=== PATIENT | female | born 1960 | race Caucasian/White ===

== ENCOUNTER 2022-04-14 11:56 | Outpatient (CLI) | payer OTHER, SELFPAY | END 2022-04-14 11:57 | disposition home or self-care (01) | PROVIDERS: Visit Provider Surgery | DX: Z12.11 Encounter for screening for malignant neoplasm of colon (principal); K63.5 Polyp of colon; K57.30 Diverticulosis of large intestine without perforation or abscess without bleeding; D64.9 Anemia, unspecified; Z80.0 Family history of malignant neoplasm of digestive organs; Z86.010 Personal history of colon polyps | CPT/HCPCS: 45385; 88305; 99153; J1200; J2250; J2405; J3010 ==

== ENCOUNTER 2023-01-16 10:12 | Outpatient (CLI) | payer OTHER, SELFPAY ==
--- NOTE | 2023-01-16 10:15 | CRLHL7_ITS ---
For Patients: As a result of the Century Cures Act, medical imaging exams and procedure reports are released immediately into your electronic medical record. You may view this report before your referring provider. If you have questions, please contact your health care provider. BILATERAL SCREENING MAMMOGRAM WITH COMPUTER-AIDED DETECTION TECHNIQUE: CC and MLO views were obtained. These mammographic images have been obtained using full-field digital technique. These mammographic images were interpreted with the benefit of computer-aided detection. COMPARISON FILM: 02/17/21, 01/21/20, 11/27/18. FINDINGS: The breasts are almost entirely fatty IMPRESSION: There is no radiographic evidence for malignancy. ASSESSMENT: BI-RADS Category 1: Negative RECOMMENDATION: Routine screening mammogram in 1 year. A lay language report of this examination will be provided to the patient. Sukhwinder Garcia M.D. Diagnostic Radiologist [email or web address] Transcribed: 12:33 p.lia cooley/Dictated by: Sukhwinder Garcia MD @ 01/16/2023 11:33:00 AM (Electronically Signed)
== END 2023-01-16 10:13 | disposition home or self-care (01) ==
LOC: MAMMO 10:14
PROVIDERS: Visit Provider Student in an Organized Health Care Education/Training Program
DX: Z12.31 Encounter for screening mammogram for malignant neoplasm of breast (principal)
CPT/HCPCS: 77067

== ENCOUNTER 2024-08-15 09:29 | Outpatient (CLI) | payer OTHER, SELFPAY ==
--- OUTSIDE RECORDS SUMMARY | 2005-08-11 19:00 | XMS_ITS | Continuity of Care Document ---
Author Organization [facility] Address [address] [address] [place] [address] Phone Care Team Providers Care Casing In Line Setter Name Role Phone Unavailable Unavailable Unavailable Advance Directives Directive Yes / No Effective Date File Name No Information Encounters Encounter Description Practice Location Reason(s) For Visit Diagnoses Date Provider Providers Copied on Encounter [facility], [address] [address], [place], [place], [id number], tel:[phone] [facility] No Information 6200 [id number] No Information Referring Provider: Bozena Wasserman MD, [address] [place], [address]. tel:[phone] Family History Family Member Type Diagnosis Age At Onset No Information Payers Payer name Insurance type Covered democrat ID Authoriza tion(s) No Information Social History Type Description Quantity Date Captured Comments Sex Female Smoking Status No Information Chief Complaint And Reason For Visit No Information Reason For Referral Reason For Referral No Information History Of Present Illness Encounter Date Complaint History Of Prese nt Illness No Information Functional Status Date Functional Assessmen t No Information Instructions Date Instruction Additional Infor mation No Information Assessments Type Assessment Date No Information Patient Care Teams Name Effective Dates (start - stop) Status Members No Information
--- NOTE | 2024-08-15 11:30 | P.ANES_ITS ---
Anesthesia Charges Start Date/Time Anesthesia Start Date: 08/15/24 Anesthesia Start Time: 11:00 Stop Date/Time Anesthesia Stop Date: 08/15/24 Anesthesia Stop Time: 11:30 Coding CPT Codes CPT Codes: YAMILEX LWTae INTST NDSC NOS - 46624 ([id number]) P2 - PATIENT W/MILD SYST DISEASE, QX - WET PRESS TENDER SVC W/ MD MED DIRECTION, QK - RN PRACTITIONER 2-4 CNCRNT ANES PROC
--- NOTE | 2024-08-15 11:30 | W.ANESCHARGE ---
Anesthesia Charges Start Date/Time Anesthesia Start Date: 08/15/24 Anesthesia Start Time: 11:00 Stop Date/Time Anesthesia Stop Date: 08/15/24 Anesthesia Stop Time: 11:30 Coding CPT Codes CPT Codes: YAMILEX LWTae INTST NDSC NOS - 95893 ([id number]) P2 - PATIENT W/MILD SYST DISEASE, QX - DIRECTOR FURNITURE SVC W/ MD MED DIRECTION, QK - GROUNDS RESTORATION SPECIALIST 2-4 CNCRNT ANES PROC
--- NOTE | 2024-08-15 11:42 | P.ANES_ITS ---
Anesthesia Charges Start Date/Time Anesthesia Start Date: 08/15/24 Anesthesia Start Time: 11:00 Stop Date/Time Anesthesia Stop Date: 08/15/24 Anesthesia Stop Time: 11:30 Coding CPT Codes CPT Codes: YAMILEX LWR INTST NDSC NOS - 70189 ([id number]) P2 - PATIENT W/MILD SYST DISEASE, QK - ENGINE SERVICE REPAIRER 2-4 CNCRNT ANES PROC, QX - SPECIAL EDUCATION SUPERINTENDENT SVC W/ MD MED DIRECTION
--- NOTE | 2024-08-15 11:42 | W.ANESCHARGE ---
Anesthesia Charges Start Date/Time Anesthesia Start Date: 08/15/24 Anesthesia Start Time: 11:00 Stop Date/Time Anesthesia Stop Date: 08/15/24 Anesthesia Stop Time: 11:30 Coding CPT Codes CPT Codes: YAMILEX LWR INTST NDSC NOS - 45025 ([id number]) P2 - PATIENT W/MILD SYST DISEASE, QK - SPOUT WORKER 2-4 CNCRNT ANES PROC, QX - PLUMBER AND TINNER SVC W/ MD MED DIRECTION
--- OUTSIDE RECORDS SUMMARY | 2024-08-16 00:49 | XMS_ITS | Clinical Summary ---
Author Organization [facility] Address [address] [place] [address] Care Team Providers Care Engineering Illustrator Name Role Phone Pcp, No Primary Care Provider Unavailabl e Allergies No known active allergies Medications cholecalciferol (VITAMIN D) 1,000 unit capsule Take 1 capsule by mouth once daily. 0 9 Active losartan 50 mg tabletIndication s:Hypertension Take 1 Tablet (50 mg) by mouth once daily. 90 Tablet 5 Active losartan 25 mg tabletIndication s:Elevated blood pressure reading without diagnosis of hypertension Take 1 Tablet (25 mg) by mouth once daily. For elevated blood pressure above 120/70 30 Tablet 5 07/24/19 25 Discontinu ed(*Medica tion adjustment ) Active Problems Problem Noted Date Diagnosed Date Hypertension 05/28/2024 Colonic polyp, Follow up Colonoscopy 12/2021 Overview (01/09/2019): 01/03/19 [facility] Colonoscopy: Multiple small and large mouthed diverticula in sigmoid colon. 5 mm polyp in appendiceal orifice, 3 mm polyp in transverse colon, 2 sessile polyps in sigmoid colon, 3 mm polyp in rectum. Colonoscopy follow up pending pathology results. 01/03/19 [facility]: Colonoscopy with 3 polyps that showed tubular adenoma that were removed and recommended colonoscopy in 3 years (12/2021) Asymptomatic varicose veins of both lower extrem ities 03/22/2018 Encounters Date Type Department Care Team Description 07/23/2024 3:20 PM CDT Office Visit [facility] [address] [place] [address], [place] [address] Guadalupe Stevens MD Urgent Care F/U ([facility]) 07/23/2024 Travel 07/03/2024 Telephone [facility] [address] [facility] [address] [place] [address] Guadalupe Stevens MD Medication Management (losartan 25 mg tablet) 07/01/2024 Refill [facility] [address] [place] [address] Malu Alvarado PA Refill Request (losartan 25 mg tablet/) 06/10/2024 12:40 PM CDT Ancillary Procedure [facility] [address] [facility] [address] [place] [address] 06/10/2024 12:00 PM CDT Office Visit [facility] Urgent [facility] [address] [facility] [address] [place] [address] Malu Alvarado PA High Blood Pressure; Leg Pain/problem 06/10/2024 Travel 06/06/2024 8:00 AM CDT Office Visit [facility] [address] [facility] [address] [place] [address] Meño De Anda MD Pre-Op Exam (Colonoscopy - 06/13/2024 - [facility]) 06/06/2024 Travel from Last 3 Months Immunizations Immunization Administration Dates Next Due COVID-19 vaccine ([employer] 30mcg/0.3mL) PF, MDV 06/25/2020,06/04/2020 Influenza RIV4 (Age 18+ Year s) PRESERV FREE 12/15/2022,11/30/2019 Influenza, IIV3 (Age >=3 years) 12/27/2011 Influenza, IIV4 12/14/2021,,12/18/2017,2015 Influenza, IIV4 (=>6mos) MDV 12/06/2018 Influenza, RIV3 (Age =>18 Years) 12/04/2023 Influenza,CCIIV4 PRESERV FREE 12/18/2017, 017 Tdap 03/22/2018 Family History Medical History Relation Name Comments Cancer Father renal Cancer-prostate Father Glaucoma Maternal Grandmother Thyroid Disease Mother Relation Name Status Comments Father Maternal Grandmother Mother Social History Tobacco Use Types Packs/Day Years Used Date Smoking Tobacco: Never Smokeless Tobacco: Never Tobacco Cessation:Counseling Given: Yes Alcohol Use Standard Drinks/Week Comments Yes 0 (1 standard drink = 0.6 oz pur e alcohol) PHQ-2 Answer Date Recorded PHQ-2 TOTAL SCORE 0 12/03/2020 Social Connections Answer Date Recorded Do you often feel lonely or isolated from those around you? 0 06/06/2024 Financial Resource Strain Answer Date R ecorded Difficulty of Paying Living Expenses 3 06/06/2024 Difficulty of Paying Living Expenses Not on file 06/06/2024 Food Insecurity Answer Date Recorded Do you worry your food will run out before you are able to buy more? 1 06/06/2024 Transportation Needs Answer Date Record ed Does lack of transportation keep you from medica l appointments? 1 06/06/2024 Does lack of transportation keep you from work, meetings or getting things that you need? 1 06/06/2024 Housing Stability Answer Date Recorded What is your housing situation today? 1 06/06/2024 Utilities Answer Date Recorded Do you have trouble paying f or utilities (for example, heat, electricity, water, phone)? 1 06/06/2024 Comments No Sex and Gender Information Value Date Recorded Sex Assigned at Not on file Legal Sex Female 6:13 AM POWER LINE INSTALLER AND REPAIRER Gender Identity Not on file Sexual Orientation Not on file Obstetrics History Last Filed Vital Signs Vital Sign Reading Time Taken Comments Blood Pressure 148/102 07/23/2024 3:32 PM CDT Pulse 90 07/23/2024 3:26 PM CDT Temperature 36.8 C (98.2 F) 06/10/2024 12:09 PM CDT Respiratory Rate 18 06/10/2024 12:0 9 PM CDT Oxygen Saturation 96% 06/10/2024 12: 09 PM CDT Inhaled Oxygen Concentration - - Weight 103.3 kg (227 lb 11.2 oz) 07/23/2024 3:26 PM CDT Height 169.6 cm (5' 6.77) 06/06/2024 8:06 AM CD T Body Mass Index 35.91 06/06/2024 8:06 AM CDT Plan of Treatment Upcoming Encounters Date Type Department Care Team (Late st Contact Info) Description 11/12/2024 9:05 AM CDT Office Visit [facility] [address] [facility] [address] [place] [address] Guadalupe Stevens MD [address] [facility] [address] [place] [address] Health Maintenance Due Date Last Done Comments HIV for age 15-65 1975 Pneumococcal series for age 50+ (1 of 1 - PCV) 2010 Zoster (shingles) series for age 50+ (1 of 2) 2010 RSV vaccine for adults or (1 - Risk 60-74 years 1-dose series) 2020 Depression screening for age 12+ 12/03/2021 12/03/2020, 03/20/2019 Colonoscopy through age 75 01/03/2022 01/03/2019, Mammogram for age 45-75 02/17/2022 02/18/20, 01/21/2020, 12/03/2018 (Completed outside of [facility]), Additional history exists Lipids for age 45-75 03/22/2023 03/22/2018, 10/01/19 05 Pap test for age 21-65 03/22/2023 9, 03/22/2018, 08/23/2007, Additional history exists BMI (ht and wt on same day) for age 18+ 06/06/2025 06/06/2024, 12/03/2020, 03/20/2019, Additional history exists Tetanus booster 03/22/2028 03/22/2018 Tdap Completed 03/22/2018 Hepatitis C screening for age 18-79 Completed 12/03/2020 COVID-19 vaccine series Completed 12/04/19, 12/15/2022, 12/14/2021, Additional history exists Influenza Vaccine Completed 12/04/2023, , 12/14/2021, Additional history exists Hepatitis B series for 19+ Aged Out N o longer eligible based on patient's age to complete this topic Procedures Procedure Name Priority Date/Time Associated Diagnosis Comments BASIC METABOLIC PANEL Routine 07/23/2024 4:04 PM CDT Hypertension TSH WITH REFLEX Routine 07/23/2024 4:04 PM CDT Hypertension XR KNEE 3 VIEWS RIGHT STAT 06/10/2024 12:54 PM CDT Bradshaw's cyst of knee, right Acute pain of right knee ME BLOOD COUNT COMPLETE AUTO&AUTO DIFRNTL WBC Routine 06/10/2024 12:53 PM CDT Elevated blood pressure reading without diagnosis of hypertension ISTAT CHEM 8 Routine 06/10/2024 12:53 PM CDT Elevated blood pressure reading without diagnosis of hypertension SCAN-MAMMOGRAPHY REPORT 02/17/2021 12:00 AM POWER LINE INSTALLER AND REPAIRER ANTI HCV Routine 12/03/2020 9:26 AM CDT Need for hepatitis C screening test SCAN-COLONOSCOPY 01/03/2019 12:0 0 PM POWER LINE INSTALLER AND REPAIRER LIPID PANEL Routine 03/22/2018 9:37 AM POWER LINE INSTALLER AND REPAIRER Routine general medical examination at health care facility INTERNAL MEDICINE HOSPITALIST THIN PREP PAP SCREEN IMAGED Routine 03/22/2018 9:18 AM POWER LINE INSTALLER AND REPAIRER Screening for malignant neoplasm of cervix from Last 3 Months or Most Recently Relevant to Health Maintenance Results * TSH WITH REFLEX (07/23/2024 4:04 PM CDT) TSH W/REFLEX TO FT4 1.86 0.40 - 4.50 mIU/L [facility] Blood BLOOD SPECIMEN / Unknown 07/23/2024 4:04 PM CDT 07/23/2024 4:04 PM CDT us Guadalupe Stevens MD CHEMISTRY Final Result [facility] [address] [place] [address], [place] [phone] [facility] [address] [place] [address] * BASIC METABOLIC PANEL (07/23/2024 4:04 PM CDT) [facility] GLUCOSE 93 65 - 99 mg/dL [facility] Comment: Fasting reference interval UREA NITROGEN (BUN) 15 7 - 25 mg/dL [facility] CREATININE 1.04 0.50 - 1.05 mg/dL [facility] EGFR 60 > OR = 60 mL/min/1. 73m2 [facility] BUN/CREATININE RATIO SEE NOTE: 6 - 22 (calc) [facility] Comment: Not Reported: BUN and Creatinine are within reference range. SODIUM 138 135 - 146 mmol/L [facility] POTASSIUM 4.0 3.5 - 5.3 mmol/L [facility] CHLORIDE 102 98 - 110 mmol/L [facility] CARBON DIOXIDE 26 20 - 32 mmol/L [facility] ELECTROLYTE BALANCE 10 7 - 17 mmol/L (calc) [facility] CALCIUM 9.9 8.6 - 10.4 mg/dL [facility] Blood BLOOD SPECIMEN / Unknown 07/23/2024 4:04 PM CDT 07/23/2024 4:04 PM CDT Guadalupe Stevens MD CHEMISTRY Final Result [facility] [employer] [facility] [address] [place] [address], [place] [phone] [facility] [address] [place] [address] * XR KNEE 3 VIEWS RIGHT (06/10/2024 12:54 PM CDT) Anatomical Region Laterality Modality KNEES, KNEE R Computed Radiogr aphy 06/10/2024 1:10 PM CDT Narrative 06/10/2024 1:10 PM CDT For Patients: As a result of the Cures Act, medical imaging exams and procedure reports are released immediately into your electronic medical record. You may view this report before your referring provider. If you have questions, please contact your health care provider. Indication: Bakers cyst of knee, right Technique: Three views of the right knee Comparison: None Findings/Impression: No acute fracture or malalignment. No knee joint effusion. 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 No suspicious osseous lesions. Small os fabella. The soft tissues are unremarkable. Dictated by Harrison Escobar MD @ 06/10/2024 1:10:41 PM (Electronically Signed) Procedure Note Harrison Escobar MD - 06/10/2024 For Patients: As a result of the Cures Act, medical imagingexams and procedure reports are released immediately into your electronicmedical record. You may view this report before your referring provider.If you have questions, please contact your health care provider. Indication: Bakers cyst of knee, right Technique: Three views of the right knee Comparison: None Findings/Impression: No acute fracture or malalignment. No knee joint effusion. Tricompartmental osteoarthritic degenerative changes, severe at the medialcompartment with complete joint space loss, subchondral sclerosis, andlarge osteophyte formation. No suspicious osseous lesions. Small os fabella. The soft tissues are unremarkable. Dictated by Harrison Escobar MD @ 06/10/2024 1:10:41 PM (Electronically Signed) [facility] Final Resu lt * (ABNORMAL) CHEM8 BMP ISTAT [[id number]] (06/10/2024 12:53 PM CDT) POCT, SODIUM, ISTAT 138 138 - 146 mmol/L [facility] (Urgent Care) POCT, POTASSIUM, ISTAT 3.9 3.5 - 4.9 mmol/L [facility] (Urgent Care) POCT, CHLORIDE, ISTAT 105 98 - 109 mmol/L [facility] (Urgent Care) POCT, CARBON DIOXIDE, ISTAT 22(L) 24 - 29 mmol/L [facility] (Urgent Care) POCT, GLUCOSE ISTAT 100 70 - 105 mg/dL [facility] (Urgent Care) POCT, UREA NITROGEN (BUN) ISTAT 14 8 - 26 mg/dL [facility] (Urgent Care) POCT,CREATININE , ISTAT 1.0 0.6 - 1.3 mg/dL [facility] (Urgent Care) POCT, CALCIUM, IONIZED, ISTAT 5.0 4.5 - 5.3 mg/dL [facility] (Urgent Care) Blood BLOOD SPECIMEN / Unknown 06/10/2024 12:53 PM CDT 06/10/2024 12:54 PM CDT Malu FLEMING CHEMISTRY Final Resu lt [facility] [address] [place] [address], [facility] [address] [place], [place] [id number] [facility] (Urgent Care) [address] [place] [phone] * CBC & DIFF [[id number]] (06/10/2024 12:53 PM CDT) WHITE BLOOD CELL COUNT 9.2 3.8 - 10.8 Thousand/u L [facility] (Urgent Care) RED BLOOD CELL COUNT 4.82 3.80 - 5.10 Million/uL [facility] (Urgent Care) HEMOGLOBIN 14.1 11.7 - 15.5 g/dL [facility] (Urgent Care) HEMATOCRIT 43.1 35.0 - 45.0 % [facility] (Urgent [facility]) MCV 89.4 80.0 - 100.0 fL [facility] ([facility]gent [facility]) MCH 29.3 27.0 - 33.0 pg [facility] (Urgent [facility]) MCHC 32.7 32.0 - 36.0 g/dL [facility] (Urgent Care) Comment: For adults, a slight decrease in the calculated MCHC value (in the range of 30 to 32 g/dL) is most likely not clinically significant; however, it should be interpreted with caution in correlation with other red cell parameters and the patient's clinical condition. RDW 12.4 11.0 - 15.0 % [facility] (Urgent [facility]) PLATELET COUNT 306 140 - 400 Thousand/u L [facility] ([facility]gent [facility]) MPV 10.4 7.5 - 12.5 fL [facility] ([facility]gent [facility]) ABSOLUTE NEUTROPHILS 5,759 1,500 - 7,800 cells/uL [facility] ([facility]gent [facility]) ABSOLUTE LYMPHOCYTES 2,677 850 - 3,900 cells/uL [facility] ([facility]gent [facility]) ABSOLUTE MONOCYTES 598 200 - 950 cells/uL [facility] ([facility]gent [facility]) ABSOLUTE EOSINOPHILS 120 15 - 500 cells/uL [facility] ([facility]gent [facility]) ABSOLUTE BASOPHILS 46 0 - 200 cells/uL [facility] (Urgent Care) NEUTROPHILS 62.6 % [facility] (Urgent Care) LYMPHOCYTES 29.1 % [facility] ([facility]gent [facility]) MONOCYTES 6.5 % [facility] (Urgent Care) EOSINOPHILS 1.3 % [facility] (Urgent Care) BASOPHILS 0.5 % [facility] (Urgent Care) Blood BLOOD SPECIMEN / Unknown 06/10/2024 12:53 PM CDT 06/10/2024 12:54 PM CDT us Mal[facility]LEMING HEMATOLOGY Final Resu lt [facility] [address], [address] [place] [address] [facility] (Urgent Care) [address] [place] [address] * SCAN-MAMMOGRAPHY REPORT (02/17/2021 12:00 AM POWER LINE INSTALLER AND REPAIRER) Anatomical Region Laterality Modality Other us Scanner OTHER Final Result * ANTI HCV (12/03/2020 9:26 AM CDT) Pathologist [facility] HEPATITIS C ANTIBODY Non-React artemio Non-React artemio 12/03/2020 4:02 PM CDT [facility] Comment:Antibodies to HCV no t detected; does not exclude the possibility of exposure to HCV. Blood BLOOD SPECIMEN / Unknown Venipuncture / Unknown 12/03/2020 9:26 AM CDT 12/03/2020 9:31 AM CDT us Guadalupe Stevens MD SEND OUTS Final Result [facility] [address] [place] [address], [place] * SCAN-COLONOSCOPY (01/03/2019 12:00 PM POWER LINE INSTALLER AND REPAIRER) us Scanner OTHER Final Result * LIPID PANEL [[id number]] (03/22/2018 9:37 AM POWER LINE INSTALLER AND REPAIRER) CHOLESTEROL,TOTAL 194 100 - 199 mg/dL 03/22/2018 2:32 PM POWER LINE INSTALLER AND REPAIRER [facility] TRIGLYCERIDES 148 <150 mg/dL 03/22/2018 2:32 PM POWER LINE INSTALLER AND REPAIRER [facility] HDL CHOLESTEROL 54 >40 mg/dL 9 2:32 PM POWER LINE INSTALLER AND REPAIRER [facility] NON-HDL CHOLESTEROL 140 <145 mg/dl 03/22/2018 2:32 PM POWER LINE INSTALLER AND REPAIRER [facility] CHOL/HDL RATIO 3.59 <4.50 03/22/2018 2:32 PM POWER LINE INSTALLER AND REPAIRER [facility] LDL CHOLESTEROL 110 <=130 mg/dL 03/22/2018 2:32 PM POWER LINE INSTALLER AND REPAIRER [facility] PROVIDER ORDERED STATUS FASTING 03/22/2018 2:32 PM POWER LINE INSTALLER AND REPAIRER [facility] Blood BLOOD SPECIMEN / Unknown Venipuncture / Unknown 03/22/2018 9:37 AM POWER LINE INSTALLER AND REPAIRER 03/22/2018 9:41 AM POWER LINE INSTALLER AND REPAIRER Guadalupe Stevens MD CHEMISTRY Final Result [facility] [address] [place] [address], [place] * INTERNAL MEDICINE HOSPITALIST THIN PREP PAP SCREEN IMAGED [[id number]] (03/22/2018 9:18 AM POWER LINE INSTALLER AND REPAIRER) Case Report Gynecologic Cytology Report Case: [id number] Authorizing Provider: Guadalupe Stevens, Collected: 03/22/2018 0918 Ordering Location: [facility] Received: 03/22/2018 0940 Clinic First Screen: Saba Gonzalez Specimen: INTERNAL MEDICINE HOSPITALIST ThinPrep Vial Screening, Cervical 04/03/2018 1:22 PM POWER LINE INSTALLER AND REPAIRER [facility] [employer] [facility] EN[facility]AL LAB[facility] INTERPRETATION/ RESULT NEGATIVE FOR INTRAEPITHELIAL LESION OR MALIGNANCY (NIL) (none) 04/03/2018 1:22 PM POWER LINE INSTALLER AND REPAIRER [facility] ENTRAL LABORATORY at [address]2 POWER LINE INSTALLER AND REPAIRER SPECIMEN ADEQUACY Satisfactory for evaluation Endocervical component present 04/03/2018 1:22 PM POWER LINE INSTALLER AND REPAIRER [facility] EN[facility] HPV REQUEST HPV and PAP 04/03/2018 1:22 PM POWER LINE INSTALLER AND REPAIRER [facility] [employer] ENTRAL LABORATORY Date of LMP 03/23/2004 04/03/2018 1:22 PM POWER LINE INSTALLER AND REPAIRER [facility] [employer] ENTRAL LABORATORY Last Pap Date More than 5 years ago 04/03/2018 1:22 PM POWER LINE INSTALLER AND REPAIRER [facility] Last Pap Result NIL 9 1:22 PM POWER LINE INSTALLER AND REPAIRER [facility] ENTRCT LABORATORY Abnormal Pap or [place] Bx in last 5 years No 04/03/2018 1:22 PM POWER LINE INSTALLER AND REPAIRER [facility] Menstrual Status Postmenopausal 04/03/2018 1:22 PM POWER LINE INSTALLER AND REPAIRER [facility] [place] Bx Done Today No 04/03/2018 1:22 PM POWER LINE INSTALLER AND REPAIRER [facility] Additional Information None given 04/03/2018 1:22 PM POWER LINE INSTALLER AND REPAIRER [facility] Automated Review Successful 04/03/2018 1:22 PM [facility] Comment:Specimen processed s uccessfully by automated sample grader device, [employer] System, [employer] ANCILLARY TESTING INTERNAL MEDICINE HOSPITALIST HPV Ordered, Please see separate report 04/03/2018 1:22 PM [facility] Note The pap test is a screening technique, not a diagnostic procedure. It is used primarily to screen for squamous cancers and precursor lesions. Published studies have shown that it is subject to both false negative and false positive results. The pap test should not be used as the sole means to diagnose or exclude pre-malignant and malignant lesions. Cytology is screened and interpreted at [facility] - [address], [place] [address] and [facility] - [address]; [place] [address] and [facility] - [address]; [place] [address] and [facility] [address]; [place] [address] 04/03/2018 1:22 PM POWER LINE INSTALLER AND REPAIRER [facility] Other (Cervical) Non-Blood / Unknown 03/22/2018 9:18 AM POWER LINE INSTALLER AND REPAIRER 03/22/2018 9:40 AM POWER LINE INSTALLER AND REPAIRER us Guadalupe Stevens MD PATHOLOGY/CYTOLOGY Fin al Result [facility] [address] [place] [address], [place] from Last 3 Months or Most Recently Relevant to Health Maintenance Insurance [facility] [employer] Care Teams Engineering Illustrator Relationship Specialty Start Date End Date Pcp, No . PCP - General 06/06/24
== END 2024-08-15 09:30 | disposition home or self-care (01) ==
LOC: OP CLINIC 09:30
PROVIDERS: Visit Provider Surgery
DX: Z12.11 Encounter for screening for malignant neoplasm of colon (principal); Z86.0100 Personal history of colon polyps, unspecified; D12.3 Benign neoplasm of transverse colon; D12.8 Benign neoplasm of rectum
CPT/HCPCS: 00811; 00812; 45385; 88305; J2704